=== PATIENT | female | born 1990 | race Caucasian/White ===

== ENCOUNTER 2018-07-04 21:00 | Emergency (ER) | payer SELFPAY ==
[~2018-07-04] VITALS: Ht 172.7 cm; Wt 86.5 kg
[2018-07-04 21:03] VITALS: BP 129/83
[2018-07-04] MEDS ORDERED: HYDROcodone/APAP 5/325 TABLET PO ONE (21:30)
[2018-07-04] MEDS ORDERED: HYDROcodone/APAP 5/325 TABLET ONE (21:33)
--- NOTE | 2018-07-04 21:47 | NUR ---
PT GIVEN DC INSTRUCTIONS AND SCRIPTS. PT EDUCATED REGARDING DC MEDICATIONS. PT AMB TO DC WITH STEADY GAIT. NO ACUTE DISTRESS AT DC.
== END 2018-07-04 21:48 | disposition home or self-care (01) ==
LOC: ED 21:42
DX: K04.7 Periapical abscess without sinus (principal)
CPT/HCPCS: 99283